=== PATIENT | female | born 1980 | race Caucasian/White ===

== ENCOUNTER → 2017-05-05 | Outpatient (CLI) | payer OTHER | LOC: LAB 14:13 | PROVIDERS: ATTEND Emergency Medicine | DX: N39.0 Urinary tract infection, site not specified (principal); R30.0 Dysuria | CPT/HCPCS: 87086; 87088; 87186 ==

== ENCOUNTER 2017-07-25 06:24 | Emergency (ER) | payer OTHER ==
--- NOTE | 2017-07-25 07:41 | ER Document Report ---
HPI - HPI Patient complains to provider of: low back pain Onset: This morning Pain Level: 4 Context: 37 yo female woke up with constant low back pain this morning at 0500. Moving boxes /home which did not bring on the pain. Thinks it is a kidney infection. Chills, achey. no fever.no n/v. UTI 2 months ago- gets them alot- only sx she gets is urgency which she has this weekend. Does have some pain when she bends forward. no radiculopathy or saddle anesthesia. Associated Symptoms: None Exacerbated by: Movement Relieved by: Denies - ROS ROS below otherwise negative: Yes Systems Reviewed and Negative: Yes All other systems reviewed and negative - REPRODUCTIVE LMP: na Reproductive: DENIES: : Past Medical History - General Information source: Patient - Social History Smoking Status: Never Smoker Frequency of alcohol use: None Drug Abuse: None Lives with: Spouse/Significant other Family History: Reviewed & Not Pertinent Psychiatric Medical History: Reports: Hx Anxiety, Hx Attention Deficit Hyperactivity Disorder, Hx Depression - Immunizations Immunizations up to date: Yes Hx Diphtheria, Pertussis, Tetanus Vaccination: Yes Vertical Provider Document - CONSTITUTIONAL Agree With Documented VS: Yes Exam Limitations: No Limitations - INFECTION CONTROL TRAVEL OUTSIDE OF THE [place] IN LAST 30 DAYS: No - HEENT HEENT: Normocephalic - NECK Neck: Supple - RESPIRATORY Respiratory: Breath Sounds Normal, No Respiratory Distress - CARDIOVASCULAR Cardiovascular: Regular Rate, Regular Rhythm - GI/ABDOMEN Gastrointestinal: Abdomen Soft, Abdomen Tender - Minimal suprapubic - BACK Back: Normal Inspection. negative: CVA Tenderness-Right, CVA Tenderness-Left - MUSCULOSKELETAL/EXTREMETIES Musculoskeletal/Extremeties: MAEW - NEURO Level of Consciousness: Awake Motor/Sensory: No Motor Deficit, No Sensory Deficit Deep Tendon Reflexes: 2+ - Bilateral ankle and patellar - DERM Integumentary: No Rash Course - Re-evaluation Re-evalutation: 07/25/17 08:42 UA shows 77 WBCs tragus of bacteria and 6 RBCs. Urine culture is pending test is negative, budding yeast in the urinalysis. Patient does not have any symptoms of itching or burning in the vagina. 07/25/17 08:44 - Vital Signs Vital signs: Temp Pulse Resp BP Pulse Ox 98.4 F 99 18 135/78 H 98 07/25/17 06:30 07/25/17 06:30 07/25/17 06:30 07/25/17 06:30 07/25/17 06:30 Discharge - Discharge Clinical Impression: Urinary tract infection, Low back pain Condition: Good Disposition: HOME, SELF-CARE Instructions: Low Back Pain ([facility]), Warm Packs ([facility]), Acetaminophen, Nitrofurantoin ([facility]) Additional Instructions: Plenty of fluids Antibiotics Urine culture is pending they will call you if you need a different antibiotic Return to the emergency room if symptoms worsen Prescriptions: Nitrofurantoin/Nitrofuran Mac [Macrobid 100 mg Capsule] 100 mg PO BID #14 capsule Referrals: DESTINEE MOORE MD [Primary Care Provider] - Follow up as needed
[2017-07-25 08:18] LABS: APPEARANCE,URINE SLIGHTLY-CLOUDY; BILIRUBIN,URINE NEGATIVE (NEGATIVE); COLOR,URINE YELLOW; GLUCOSE, URINE NEGATIVE (NEGATIVE); KETONES,URINE NEGATIVE (NEGATIVE); LEUKOCYTE ESTERASE,URINE MODERATE (NEGATIVE); NITRITE,URINE NEGATIVE (NEGATIVE); PROTEIN,URINE 30 mg/dL (NEGATIVE); URINE SPECIFIC GRAVITY 1.014; UROBILINOGEN,URINE NEGATIVE mg/dL (<2.0)
[2017-07-25 09:24] VITALS: BP 136/76
== END 2017-07-25 09:24 | disposition home or self-care (01) ==
LOC: ER 06:24
DX: N39.0 Urinary tract infection, site not specified (principal); M54.5 Low back pain
CPT/HCPCS: 81001; 81025; 87086; 87088; 87186; 99283